=== PATIENT | male | born 1955 | race African-American/Black ===

== ENCOUNTER → 2021-05-12 | Outpatient (CLI) | payer OTHER | END | disposition home or self-care (01) | LOC: ORTHO 11:48 | PROVIDERS: ATTEND Orthopaedic Surgery | DX: M25.521 Pain in right elbow (principal) ==

== ENCOUNTER → 2021-07-10 | Day surgery (SDC) | payer OTHER ==
[~2021-07-10] VITALS: Ht 182.8 cm; Wt 102.1 kg
[2021-07-10 06:55] VITALS: BP 153/83
[2021-07-10 09:18] VITALS: BP 116/58
[2021-07-10 09:33] VITALS: BP 144/76
[2021-07-10 09:48] VITALS: BP 129/69
[2021-07-10 10:03] VITALS: BP 138/64
[2021-07-10 10:18] VITALS: BP 136/67
== END | disposition home or self-care (01) ==
LOC: SDC 07-08 09:30
PROVIDERS: ATTEND Orthopaedic Surgery
DX: G56.22 Lesion of ulnar nerve, left upper limb (principal); G58.7 Mononeuritis multiplex

== ENCOUNTER → 2023-08-05 | Outpatient (CLI) | payer OTHER | END | disposition home or self-care (01) | LOC: ORTHO 09:01 | PROVIDERS: ATTEND Orthopaedic Surgery | DX: G56.22 Lesion of ulnar nerve, left upper limb (principal); M77.8 Other enthesopathies, not elsewhere classified ==

== ENCOUNTER → 2024-03-22 | Outpatient (CLI) | payer OTHER | END | disposition home or self-care (01) | LOC: ORTHO 03:29 | PROVIDERS: ATTEND Orthopaedic Surgery | DX: M17.12 Unilateral primary osteoarthritis, left knee (principal) ==

== ENCOUNTER → 2025-01-23 | Day surgery (SDC) | payer OTHER ==
[~2025-01-23] VITALS: Ht 182.8 cm; Wt 97.5 kg
[~2025-01-23] MED LIST: ACETAMINOPHEN 100 ML IV ONE; ATORVASTATIN CA40 M1 PO; Dexamethasone Sodium Phospha 4 MG/ML VIAL IV ONE; ENALAPRIL5 MG PO; GLYCOPYRROLATE 0.4 MG/2 ML VIAL IV ONE; Lactated Ringer's Solution 1,000 ML IV ONE; Lidocaine Hydrochloride 2% 5 ML SDV IM ONE; Lidocaine Hydrochloride 30 ML VIAL ONE; Ondansetron Hydrochloride 4 MG/2 ML VIAL IV ONE; PROPOFOL 200 MG/20 ML VIAL IV ONE; Phenylephrine Hydrochloride 10 MG/ML VIAL IV ONE; ROXICODONE15 MG PO; SEVOFLURANE 250 ML BOT INH ONE; VITAMIN D3125 MCG PO; ceFAZolin sodium 2GM/20ML IV ONE; ceFAZolin sodium/sodium chlor 30 ML IV ONE; ePHEDrine Sulfate 25 MG/5 ML SYRINGE IV ONE
[2025-01-23 07:14] VITALS: BP 159/86
[2025-01-23 07:14] LABS: BUN 17 mg/dl (9-23)
[2025-01-23 09:15] VITALS: BP 140/70
[2025-01-23 09:30] VITALS: BP 142/68
[2025-01-23 09:43] VITALS: BP 134/68
[2025-01-23 10:00] VITALS: BP 138/70
[2025-01-23 10:08] VITALS: BP 141/76
== END | disposition home or self-care (01) ==
LOC: SDC 01-16 11:00
PROVIDERS: ATTEND Orthopaedic Surgery
DX: G56.21 Lesion of ulnar nerve, right upper limb (principal); I10 Essential (primary) hypertension; E11.9 Type 2 diabetes mellitus without complications; E78.00 Pure hypercholesterolemia, unspecified; Z98.890 Other specified postprocedural states; Z79.899 Other long term (current) drug therapy